=== PATIENT | female | born 1990 | race Caucasian/White ===

== ENCOUNTER 2017-02-06 17:20 | Inpatient (IN) | payer MEDICAID, OTHER ==
[2017-02-06 19:16] VITALS: BMI 22.8
[2017-02-06] MEDS ORDERED: MAGNESIUM HYDROXIDE 2,400 MG/10 ML CUP PO PRN (19:29)
[2017-02-06] MEDS ORDERED: ZIPRASIDONE 20 MG VIAL IM PRN (19:29)
[2017-02-06] MEDS: NICOTINE 14MG/24HR PATCH TRANSDERM SCH (20:30)
[2017-02-07] MEDS: NICOTINE 14MG/24HR PATCH TRANSDERM SCH (09:14)
[2017-02-07] MEDS: LORazepam 1 MG TAB PO PRN (09:14)
[2017-02-07] MEDS ORDERED: QUEtiapine 50 MG TAB PO PRN (09:39)
[2017-02-07] MEDS: FLUoxetine HCL 20 MG CAP PO SCH (11:07)
[2017-02-07] MEDS ORDERED: LOPERAMIDE 2 MG CAP PO PRN (14:16)
[2017-02-07] MEDS: MAG HYDROX/AL HYDROX/SIMETH 30 ML CUP PO PRN (14:41)
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
--- NOTE | 2017-02-07 18:57 | CONS ---
CHIEF COMPLAINT: Depression. HISTORY OF PRESENT ILLNESS: This is another admission for this 26-year-old white female who has a long-standing history of problems, including difficulty with depression. She is admitted for management of a severe depressive episode. She is bipolar. We have not seen her since July of 2016; at that time she was on BuSpar and Celexa. Apparently she had quite a bit of difficulty of late and was brought in for treatment. REVIEW OF SYSTEMS: She is currently not giving much history and is curled up on the floor between her bed and the wall. She denies any headaches, chest pain, shortness of breath, abdominal pain, etc. Past medical history, family history, and personal and social histories are all otherwise unremarkable and noncontributory. She does smoke and drinks alcohol. PHYSICAL EXAMINATION: Blood pressure is 114/66, pulse 70, respiration 16. She is afebrile. In general she appeared to be slender and in no acute distress. She was huddled up on her blanket between her bed and the wall. Head, ears, eyes, nose, mouth and throat were normal. The chest is clear. The cardiac exam is normal. The abdomen is soft, nontender. Extremities are normal. IMPRESSION: 1. Major depression. 2. History of bipolar depression. 3. Asthma. RECOMMENDATIONS: None at this time.
[2017-02-07] MEDS ORDERED: QUEtiapine 100 MG TAB PO SCH (21:00)
[2017-02-08] MEDS: NICOTINE 14MG/24HR PATCH TRANSDERM SCH (10:08)
[2017-02-08] MEDS: FLUoxetine HCL 20 MG CAP PO SCH (10:09)
[2017-02-08 12:05] LABS: Appearance,Urine Cloudy (Clear); Bilirubin,Urine Negative (Negative); Glucose,Urine (UA) Negative (Negative); Ketones,Urine Negative (Negative); Leukocyte Esterase,Urine Negative (Negative); Mucus,Urine Moderate /hpf; Nitrite,Urine Negative (Negative); PH, Urine 6.5 (5.0-8.0); Particle Count 11237; Protein,Urine 1+ (Negative); RBC,Urine 1 /hpf (0-5); Specific Gravity,Urine 1.018 (1.001-1.035); Squamous Epithelial Cell,Urine 5 /hpf (0-4); UA Billing (MACRO vs. MICRO) MICRO; Urobilinogen,Urine <2.0 mg/dL (<2.0); WBC,Urine 3 /hpf (0-5)
[2017-02-08] MEDS: SERTRALINE 100 MG TAB PO SCH (12:09)
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
[2017-02-08] MEDS: QUEtiapine 200 MG TAB PO SCH (20:00)
[2017-02-08] MEDS: ONDANSETRON 4 MG TAB PO PRN (20:00)
[2017-02-09] MEDS: ACETAMINOPHEN TAB 325 MG TAB PO PRN (06:35)
[2017-02-09] MEDS: SERTRALINE 100 MG TAB PO SCH (09:33)
[2017-02-09] MEDS: ONDANSETRON 4 MG TAB PO PRN ×2 (09:33→18:38)
[2017-02-09] MEDS: NICOTINE 14MG/24HR PATCH TRANSDERM SCH (09:33)
--- NOTE | 2017-02-09 13:51 | P.PN ---
Progress Note - Text SUBJECTIVE: I reviewed the medical record, interviewed Ms. Connor and discussed her treatment and treatment plan during team meeting. She stated she feels less depressed, hopeless and helpless. She denied having current suicidal thoughts. She spoke with a friend, Leoncio, and may stay with him until she can enter the [facility] house. Leoncio does not have a problem with drugs or alcohol. On a 10 point Likert scale she rated her depression as a "5" She requested to be discharged "by Tuesday" because she wants to attend the for her children's father's father. OBJECTIVE: She presented as a casually groomed 26-year-old female who was pleasant on approach. She maintained intermittent eye contact and appeared to attend to interview. She had a blunted but bright facial expression. She was not restless during the interview. Speech was spontaneous with normal rate, rhythm and volume. Her affect was blunted but bright; she did not cry during interview. She denied suicidal ideation and wishes. She denied feeling hopelessness, helplessness and worthlessness. She denied express ideas reference or paranoid ideation. Her thinking was concrete but her associations were coherent and logical. She denied hallucinations and did not appear to be responding to internal stimuli. ASSESSMENT: She appears moderately mentally illness and much improved from admission. PLAN: Continue inpatient psychiatric hospitalization. Continue Zoloft 100 mg daily, Seroquel 200 mg daily and Seroquel 50 mg by mouth twice a day when necessary for anxiety. Continue lorazepam 1 mg by mouth every 8 hours when necessary for agitation or extreme anxiety and Geodon 20 mg IM by mouth twice a day for agitation or acute psychosis. Encourage participation in therapeutic groups and activities. Evaluate clinical status response to treatment on a daily basis.
[2017-02-09] MEDS: MAG HYDROX/AL HYDROX/SIMETH 30 ML CUP PO PRN (16:33)
[2017-02-09] MEDS: LORazepam 1 MG TAB PO PRN (18:38)
[2017-02-09] MEDS: QUEtiapine 200 MG TAB PO SCH (20:42)
[2017-02-10] MEDS: ACETAMINOPHEN TAB 325 MG TAB PO PRN (02:43)
[2017-02-10] MEDS: NICOTINE 14MG/24HR PATCH TRANSDERM SCH (08:13)
[2017-02-10] MEDS: LORazepam 1 MG TAB PO PRN ×2 (08:16→18:09)
[2017-02-10] MEDS: SERTRALINE 100 MG TAB PO SCH (08:16)
--- NOTE | 2017-02-10 11:51 | P.PN ---
Progress Note - Text SUBJECTIVE: I reviewed the medical record, interviewed Ms. Connor and discussed her treatment and treatment plan during team meeting. She feels hopeful. Her geriatric social worker assist her in contacting the [facility]. She has an interview this afternoon with one of their recovery coaches. She is excited about the prospect of going to [facility]. OBJECTIVE: She presented as a casually groomed 26-year-old female who was pleasant on approach. She maintained intermittent eye contact and appeared to attend to interview. She had a blunted but bright facial expression. She was not restless during the interview. Speech was spontaneous with normal rate, rhythm and volume. Her affect was blunted but bright; she did not cry during interview. She denied suicidal ideation and wishes. She denied feeling hopelessness, helplessness and worthlessness. She did not express ideas reference or paranoid ideation. Her thinking was concrete but her associations were coherent and logical. She denied hallucinations and did not appear to be responding to internal stimuli. ASSESSMENT: She appears minimally mentally illness and much improved from admission. PLAN: She if she accepted discharge her to the [facility] otherwise discharge to her friend's home. Continue Zoloft 100 mg daily, Seroquel 200 mg daily and Seroquel 50 mg by mouth twice a day when necessary for anxiety. Continue lorazepam 1 mg by mouth every 8 hours when necessary for agitation or extreme anxiety and Geodon 20 mg IM by mouth twice a day for agitation or acute psychosis. Encourage participation in therapeutic groups and activities. Evaluate clinical status response to treatment on a daily basis.
[2017-02-10] MEDS: QUEtiapine 200 MG TAB PO SCH (20:12)
[2017-02-11 06:34] VITALS: BP 118/81; PULSE 63; RESP 16; TEMP 98.6
[2017-02-11] MEDS: NICOTINE 14MG/24HR PATCH TRANSDERM SCH (08:36)
[2017-02-11] MEDS: SERTRALINE 100 MG TAB PO SCH (08:36)
[2017-02-11] MEDS: LORazepam 1 MG TAB PO PRN (10:43)
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
== END 2017-02-11 14:22 | disposition home or self-care (01) | DRG 881 ==
LOC: 3MHU 18:17
PROVIDERS: ADMIT Psychiatry & Neurology Psychiatry; ATTEND Psychiatry & Neurology Psychiatry
DX: F32.9 Major depressive disorder, single episode, unspecified (principal); F11.20 Opioid dependence, uncomplicated; R45.851 Suicidal ideations; F14.20 Cocaine dependence, uncomplicated; B19.20 Unspecified viral hepatitis C without hepatic coma; F41.1 Generalized anxiety disorder; G56.00 Carpal tunnel syndrome, unspecified upper limb; G47.00 Insomnia, unspecified; J45.909 Unspecified asthma, uncomplicated; M41.9 Scoliosis, unspecified; Z59.0 Homelessness; Z63.4 Disappearance and death of family member; Z79.899 Other long term (current) drug therapy; Z91.013 Allergy to seafood
CPT/HCPCS: 80306; 81001

== ENCOUNTER 2017-04-01 17:40 | Emergency (ER) | payer OTHER ==
[2017-04-01 18:00] VITALS: BP 113/68; PULSE 75; RESP 18; TEMP 99.3
--- NOTE | 2017-04-01 18:09 | ED ---
Fall HPI - General Chief Complaint: Fall Stated Complaint: Fall Time Seen by Provider: 04/01/17 18:02 Source: patient, RN notes reviewed Mode of arrival: ambulatory - History of Present Illness Initial Comments: 26-year-old female presents emergency room chief complaint of right-sided rib pain. Patient states that she fell on her steps on Tuesday. Patient states that she's had this pain in the right-sided ribs. Worse if she takes a deep breath. Tender to touch. Patient states just not getting any better so she was. Patient states that she hasn't had any other symptoms with this. Patient denies any cough cold runny nose any fever chills. Patient states she did not hit her head she did not lose consciousness with the incident. Patient states she was concerned due to her continued symptoms that evaluated.Patient denies any recent fever, chills, shortness of breath, chest pain, back pain, abdominal pain, nausea vomiting, numbness or tingling, dysuria or hematuria, constipation or diarrhea, headaches or visual changes, or any other current symptoms. - Related Data Previous Rx's Medication Instructions Recorded Nicotine 14Mg/24Hr Patch [Habitrol] 1 patch TRANSDERM DAILY #7 patch 02/11/17 QUEtiapine [SEROquel] 50 mg PO BID PRN 30 Days 02/11/17 QUEtiapine [SEROquel] 200 mg PO HS 30 Days 02/11/17 Sertraline [Zoloft] 100 mg PO DAILY 30 Days 02/11/17 Ibuprofen [Motrin] 600 mg PO Q6HR PRN #20 tab 04/01/17 Allergies Allergy/AdvReac Type Severity Reaction Status Date / Time shellfish derived [Shellfish] AdvReac Nausea & Verified 02/06/17 19:18 Vomiting Review of Systems ROS Statement: Those systems with pertinent positive or pertinent negative responses have been documented in the HPI. ROS Other: All systems not noted in ROS Statement are negative. Past Medical History Past Medical History: Asthma Additional Past Medical History / Comment(s): childhood asthma History of Any Multi-Drug Resistant Organisms: None Reported Past Surgical History: Section, Tubal Ligation Additional Past Surgical History / Comment(s): x2 Past Anesthesia/Blood Transfusion Reactions: Previous Problems w/ Anesthesia Additional Past Anesthesia/Blood Transfusion Reaction / Comment(s): epidural did not work, put under for and quit breathing. Past Psychological History: No Psychological Hx Reported Smoking Status: Current every day smoker Past Alcohol Use History: None Reported Past Drug Use History: Marijuana Additional Drug Use History / Comment(s): abuse of heroin in the past, she has not used in the past month. heroin use yesterday 06/27/16 - Past Family History Father Family Medical History: Hypertension, Pneumonia Mother Additional Family Medical History / Comment(s): ETOH, mental issues. General Exam Limitations: no limitations General appearance: alert, in no apparent distress Head exam: Present: atraumatic, normocephalic, normal inspection ENT exam: Present: normal exam, mucous membranes moist Neck exam: Present: normal inspection. Absent: tenderness, meningismus, lymphadenopathy Respiratory exam: Present: normal lung sounds bilaterally, chest wall tenderness (Over the right lateral rib cage). Absent: respiratory distress, wheezes, rales, rhonchi, stridor Cardiovascular Exam: Present: regular rate, normal rhythm, normal heart sounds. Absent: systolic murmur, diastolic murmur, rubs, gallop, clicks GI/Abdominal exam: Present: soft, normal bowel sounds. Absent: distended, tenderness, guarding, rebound, rigid Neurological exam: Present: alert, oriented X3 Psychiatric exam: Present: normal affect, normal mood Skin exam: Present: warm, dry, intact, normal color. Absent: rash Course Vital Signs 04/01/17 17:58 Temperature 99.3 F Pulse Rate 75 Respiratory 18 Rate Blood Pressure 113/68 O2 Sat by Pulse 99 Oximetry Medical Decision Making - Medical Decision Making 18-year-old female presents with chief complaint of fall with right-sided rib pain. This time patient went rib and a chest x-ray. At this time patient does appear to have a 10th rib fracture. We will start her on pain medication. We discussed the importance of deep breath she discussed care of follow-up and return parameters. Patient stated she understood all questions have been answered. She'll be discharged. - Radiology Data Radiology results: report reviewed, image reviewed Disposition Clinical Impression: Fall, Closed rib fracture Disposition: HOME SELF-CARE Condition: Stable Instructions: Rib Fracture (ED) Additional Instructions: Please use medication as discussed. Please follow up with family doctor if symptoms have not improved over the next two days. Please return to the emergency room if your symptoms increase or worsen or for any other concerns. Prescriptions: Ibuprofen [Motrin] 600 mg PO Q6HR PRN #20 tab PRN Reason: Pain Referrals: Bhavin Guzman MD [Primary Care Provider] - 1-2 days Time of Disposition: 18:49
--- NOTE | 2017-04-01 18:31 | XR ---
PA chest x-ray with right RIBS HISTORY: Fall 2 days ago, right rib pain Frontal view of the chest and 4 views of the right ribs No comparisons There is posterior right 10th nondisplaced rib fracture. No pneumothorax or pleural effusion. Cardiac mediastinal silhouette, pulmonary vascularity and kristine within normal limits. IMPRESSION: Nondisplaced posterior 10th rib fracture on the right.
== END 2017-04-01 18:45 | disposition home or self-care (01) ==
LOC: EC 17:40
DX: S22.31XA Fracture of one rib, right side, initial encounter for closed fracture (principal); F17.200 Nicotine dependence, unspecified, uncomplicated; Z91.013 Allergy to seafood; W10.9XXA Fall (on) (from) unspecified stairs and steps, initial encounter
CPT/HCPCS: 99284

== ENCOUNTER 2017-09-05 14:53 | Inpatient (IN) | payer MEDICAID, OTHER ==
[2017-09-05] MEDS ORDERED: LORazepam 1 MG TAB PO STA (15:29)
[2017-09-05] MEDS ORDERED: DIPH,PERTUS(ACELL)TETVAC-LF 0.5 ML VIAL IM ONE (15:32)
--- NOTE | 2017-09-05 15:35 | ED ---
Psych HPI - General Chief Complaint: Psychiatric Symptoms Stated Complaint: Mental Health Time Seen by Provider: 09/05/17 15:07 Source: EMS Mode of arrival: EMS - History of Present Illness Initial Comments: 27 years old female brought in by police, she has been drinking today she stated she had to pull cancer. And 5 shots she took 4-5 pills of Wellbutrin today around 10 AM she also inflicted some superficial wounds on the left forearm, he has suicidal. Denies any headaches no neck pain no chest pain or shortness of breath no abdominal pain no frequency urgency dysuria - Related Data Previous Rx's Medication Instructions Recorded Amoxicillin 250 mg PO Q8HR #3 cap 09/12/17 Benzocaine 20 % Gel [Orajel] 20 gm MM QID PRN tube 09/12/17 Ibuprofen [Motrin] 400 mg PO TID PRN tab 09/12/17 Naltrexone HCl [Revia] 50 mg PO DAILY #30 tab 09/12/17 Venlafaxine HCl ER [Effexor XR] 75 mg PO DAILY #30 cap 09/12/17 lamoTRIgine [LaMICtal] 25 mg PO HS #30 tab 09/12/17 Allergies Allergy/AdvReac Type Severity Reaction Status Date / Time shellfish derived [Shellfish] AdvReac Nausea & Verified 09/05/17 15:19 Vomiting Review of Systems ROS Statement: Those systems with pertinent positive or pertinent negative responses have been documented in the HPI. ROS Other: All systems not noted in ROS Statement are negative. Past Medical History Past Medical History: Asthma Additional Past Medical History / Comment(s): childhood asthma History of Any Multi-Drug Resistant Organisms: None Reported Past Surgical History: Section, Tubal Ligation Additional Past Surgical History / Comment(s): x2 Past Anesthesia/Blood Transfusion Reactions: Previous Problems w/ Anesthesia Additional Past Anesthesia/Blood Transfusion Reaction / Comment(s): epidural did not work, put under for and quit breathing. Past Psychological History: No Psychological Hx Reported Smoking Status: Current every day smoker Past Alcohol Use History: None Reported Past Drug Use History: Marijuana - Past Family History Father Family Medical History: Hypertension, Pneumonia Mother Additional Family Medical History / Comment(s): ETOH, mental issues. General Exam - General Exam Comments Initial Comments: General: The patient is awake and alert, in no distress, and does not appear acutely ill. Prior to my exam she was quite violent she needed for point restraints by the time of my exam she was quite relaxed and cooperative Skin: Skin is warm and dry noticed 3 lacerations on the left forearm each one of those lacerations worse about 5-6 cm long Eye: Pupils are equal, round and reactive to light, extra-ocular movements are intact; there is normal conjunctiva bilaterally. Ears, nose, mouth and throat: There are moist mucous membranes and no oral lesions. Neck: The neck is supple, there is no tenderness or JVD. Cardiovascular: There is a regular rate and rhythm. No murmur, rub or gallop is appreciated. Respiratory: To auscultation bilateral, no wheezing no rhonchi no distress respiratory bright noticed Gastrointestinal: Soft, non-distended, non-tender abdomen without masses or organomegaly noted. There is no rebound or guarding present. Bowel sounds are unremarkable. Back: There is no tenderness to palpation in the midline. There is no obvious deformity. Musculoskeletal: Normal ROM, no tenderness, There is no pedal edema. There is no calf tenderness or swelling. No cords were appreciated. Neurological: CN II-XII intact, Cranial nerves III through XII are intact. There are no obvious motor or sensory deficits. Coordination appears grossly intact. Speech is normal. Psychiatric: Cooperative, appropriate mood & affect, normal judgment. Limitations: no limitations Course Vital Signs 09/05/17 15:02 Temperature 98.1 F Pulse Rate 110 H Respiratory 18 Rate Blood Pressure 130/80 O2 Sat by Pulse 97 Oximetry Procedures - Laceration Laceration #1 Consent Obtained: verbal consent Time Out Performed: Yes Indication: laceration Site: upper extremity Size (cm): 5 Description: linear Depth: simple, single layer Sedation/Analgesia: none Anesthetic Used: lidocaine 1% Anesthesia Technique: local infiltration Pre-repair: irrigated extensively Type of Sutures: nylon Size of Sutures: 5-0 Number of Sutures: 5 Laceration #2 Time Out Performed: Yes Indication: laceration Site: upper extremity Description: linear Depth: simple, single layer Sedation/Analgesia: none Anesthetic Used: lidocaine 1% Anesthesia Technique: local infiltration Amount (mls): 3 Pre-repair: irrigated extensively Type of Sutures: nylon Size of Sutures: 5-0 Number of Sutures: 4 Technique: simple, interrupted (tolerated the procedure well there were no complication) - Restraint - Face to Face Restraint Occurrence 1 Patient's Immediate Situation: Endangers self safety, Endangers others' safety, Endangers staff safety Patient's Reaction to the Intervention: Uncooperative, Hostile, Belligerent, Aggressive, Combative, Restless Patient's Medical & Behavioral Condition: Confused, Agitated, Paranoid Need to Continue or Terminate Restraint or Seclusion: Continue Medical Decision Making - Lab Data Result diagrams: 09/05/17 15:50 09/05/17 15:50 Lab Results 09/05/17 09/05/17 09/05/17 Range/Units 15:50 15:50 15:50 WBC 8.4 (3.8-10.6) k/uL RBC 3.94 (3.80-5.40) m/uL Hgb 11.0 L (11.4-16.0) gm/dL Hct 35.2 (34.0-46.0) % MCV 89.3 (80.0-100.0) fL MCH 28.0 (25.0-35.0) pg MCHC 31.4 (31.0-37.0) g/dL RDW 15.2 (11.5-15.5) % Plt Count 276 (150-450) k/uL Neutrophils % 84 % Lymphocytes % 10 % Monocytes % 4 % Eosinophils % 1 % Basophils % 0 % Neutrophils # 7.0 (1.3-7.7) k/uL Lymphocytes # 0.9 L (1.0-4.8) k/uL Monocytes # 0.3 (0-1.0) k/uL Eosinophils # 0.1 (0-0.7) k/uL Basophils # 0.0 (0-0.2) k/uL Hypochromasia Slight Sodium 146 H (137-145) mmol/L Potassium 4.0 (3.5-5.1) mmol/L Chloride 110 H (98-107) mmol/L Carbon Dioxide 22 (22-30) mmol/L Anion Gap 14 mmol/L BUN 8 (7-17) mg/dL Creatinine 0.73 (0.52-1.04) mg/dL Est GFR (MDRD) Af Amer >60 (>60 ml/min/1.73 sqM) Est GFR (MDRD) Non-Af >60 (>60 ml/min/1.73 sqM) Glucose 93 (74-99) mg/dL Estimated Ave Glu mg/dL mg/dL Hemoglobin A1c (4.2-6.1) % Calcium 8.9 (8.4-10.2) mg/dL Triglycerides (<150) mg/dL Cholesterol (<200) mg/dL LDL Cholesterol, Calc (0-99) mg/dL HDL Cholesterol (40-60) mg/dL TSH (0.465-4.680) mIU/L Salicylates <1.0 mg/dL Urine Opiates Screen Not Detected (NotDetected) Ur Oxycodone Screen Not Detected (NotDetected) Urine Methadone Screen Not Detected (NotDetected) Ur Propoxyphene Screen Not Detected (NotDetected) Acetaminophen <10.0 ug/mL Ur Barbiturates Screen Not Detected (NotDetected) U Tricyclic Antidepress Not Detected (NotDetected) Ur Phencyclidine Scrn Not Detected (NotDetected) Ur Amphetamines Screen Not Detected (NotDetected) U Methamphetamines Scrn Not Detected (NotDetected) U Benzodiazepines Scrn Not Detected (NotDetected) Urine Cocaine Screen Detected H (NotDetected) U Marijuana (THC) Screen Detected H (NotDetected) Serum Alcohol 95 mg/dL 09/05/17 09/05/17 09/05/17 Range/Units 15:50 15:50 15:50 WBC (3.8-10.6) k/uL RBC (3.80-5.40) m/uL Hgb (11.4-16.0) gm/dL Hct (34.0-46.0) % MCV (80.0-100.0) fL MCH (25.0-35.0) pg MCHC (31.0-37.0) g/dL RDW (11.5-15.5) % Plt Count (150-450) k/uL Neutrophils % % Lymphocytes % % Monocytes % % Eosinophils % % Basophils % % Neutrophils # (1.3-7.7) k/uL Lymphocytes # (1.0-4.8) k/uL Monocytes # (0-1.0) k/uL Eosinophils # (0-0.7) k/uL Basophils # (0-0.2) k/uL Hypochromasia Sodium (137-145) mmol/L Potassium (3.5-5.1) mmol/L Chloride (98-107) mmol/L Carbon Dioxide (22-30) mmol/L Anion Gap mmol/L BUN (7-17) mg/dL Creatinine (0.52-1.04) mg/dL Est GFR (MDRD) Af Amer (>60 ml/min/1.73 sqM) Est GFR (MDRD) Non-Af (>60 ml/min/1.73 sqM) Glucose (74-99) mg/dL Estimated Ave Glu mg/dL 103 mg/dL Hemoglobin A1c 5.2 (4.2-6.1) % Calcium (8.4-10.2) mg/dL Triglycerides 102 (<150) mg/dL Cholesterol 125 (<200) mg/dL LDL Cholesterol, Calc 46 (0-99) mg/dL HDL Cholesterol 59 (40-60) mg/dL TSH 0.168 L (0.465-4.680) mIU/L Salicylates mg/dL Urine Opiates Screen (NotDetected) Ur Oxycodone Screen (NotDetected) Urine Methadone Screen (NotDetected) Ur Propoxyphene Screen (NotDetected) Acetaminophen ug/mL Ur Barbiturates Screen (NotDetected) U Tricyclic Antidepress (NotDetected) Ur Phencyclidine Scrn (NotDetected) Ur Amphetamines Screen (NotDetected) U Methamphetamines Scrn (NotDetected) U Benzodiazepines Scrn (NotDetected) Urine Cocaine Screen (NotDetected) U Marijuana (THC) Screen (NotDetected) Serum Alcohol mg/dL Disposition Clinical Impression: Drug overdose, Suicidal ideation, Forearm laceration Disposition: HOME SELF-CARE Condition: Good
[2017-09-05 16:14] LABS: Basophils % (A) 0 %; CH 28.8; CHCM 32.4; Eosinophils # (A) 0.1 k/uL (0-0.7); Eosinophils % (A) 1 %; HCT 35.2 % (34.0-46.0); HDW 3.18; Hypochromasia Slight; Luc # (Auto) 0.08; Luc % (Auto) 1; Lymphocytes # (A) 0.9 k/uL (1.0-4.8); Lymphocytes % (A) 10 %; MCHC 31.4 g/dL (31.0-37.0); MCV 89.3 fL (80.0-100.0); Mean Platelet Volume 7.7; Monocytes # (A) 0.3 k/uL (0-1.0); Monocytes % (A) 4 %; Neutrophils % (A) 84 %; RBC 3.94 m/uL (3.80-5.40); RDW 15.2 % (11.5-15.5); WBC 8.4 k/uL (3.8-10.6); WBC (Perox) 8.97
[2017-09-05 16:28] LABS: Acetaminophen <10.0 ug/mL; Anion Gap 14 mmol/L; Blood Urea Nitrogen 8 mg/dL (7-17); Calcium 8.9 mg/dL (8.4-10.2); Carbon Dioxide 22 mmol/L (22-30); Chloride 110 mmol/L (98-107); Glucose 93 mg/dL (74-99); Non-African American GFR(MDRD) >60 (>60 ml/min/1.73 sqM); Salicylate <1.0 mg/dL; Sodium 146 mmol/L (137-145)
[2017-09-05 16:34] LABS: Alcohol 95 mg/dL
[2017-09-05] MEDS ORDERED: MAG HYDROX/AL HYDROX/SIMETH 30 ML CUP PO PRN (21:23)
[2017-09-05] MEDS ORDERED: MAGNESIUM HYDROXIDE 2,400 MG/10 ML CUP PO PRN (21:23)
[2017-09-05] MEDS ORDERED: LORazepam 2 MG/ML INJ IM PRN (21:25)
[2017-09-05] MEDS: NICOTINE 21MG/24HR PATCH TRANSDERM SCH (22:34)
[2017-09-06 02:57] LABS: Cholesterol 125 mg/dL (<200); HDL Cholesterol 59 mg/dL (40-60)
[2017-09-06 08:07] LABS: Hemoglobin A1C 5.2 % (4.2-6.1)
[2017-09-06] MEDS: NICOTINE 21MG/24HR PATCH TRANSDERM SCH (09:52)
[2017-09-06] MEDS: ACETAMINOPHEN TAB 325 MG TAB PO PRN ×2 (10:30→17:31)
[2017-09-06] MEDS: LORazepam 1 MG TAB PO PRN ×4 (10:32→20:36)
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
[2017-09-06] MEDS: NEOMYCIN-BACITRACIN-POLY OINT 14 GM TUBE TOPICAL SCH (18:43)
[2017-09-06] MEDS: AMOXICILLIN 250 MG CAP PO SCH ×2 (18:43→23:21)
--- NOTE | 2017-09-06 20:13 | CONS ---
CONSULTATION CHIEF COMPLAINT: Major depression. HISTORY OF PRESENT ILLNESS: This is another admission for this 27-year-old white female who became severely depressed and started cutting her left forearm. She came to the emergency room, where sutures were taken and she was admitted. She has a long-standing history of major depression and alcohol abuse and had been drinking heavily. She also has a history of asthma. She has not been in the office for over a year. REVIEW OF SYSTEMS: She denies any focal neurologic deficits, chest pain, hemoptysis, hypertension, heart disease, abdominal pain, vomiting, diarrhea, melena, hematochezia, jaundice, renal disease, diabetes, etc. PAST MEDICAL HISTORY, FAMILY HISTORY, PERSONAL AND SOCIAL HISTORY: Reveal that she is currently not taking any medication and is not allergic to any. She drinks heavily, but denies the use of drugs. She does smoke about a pack of cigarettes a day. The only surgery she has had is a tubal ligation. PHYSICAL EXAMINATION: Blood pressure is 134/90 with a pulse of 90, respirations of 35 and she is afebrile. GENERAL: She appeared to be depressed. SKIN: Color is normal. Skin is warm and dry. She had excoriations on the left forearm which were dressed. HEAD EARS, EYES, NOSE, MOUTH AND THROAT: Normal. CHEST: Clear. CARDIAC: Normal. No murmurs or extra sounds. ABDOMEN: Soft, nontender, without any visceromegaly or masses. Bowel sounds present. EXTREMITIES: Normal. NEUROLOGICAL: She is intact, but very depressed. IMPRESSION: 1. Major depression. 2. Lacerations of left forearm. 3. Asthma. RECOMMENDATIONS: None. MMODL / IJN: [id number] /
[2017-09-07] MEDS: NICOTINE 21MG/24HR PATCH TRANSDERM SCH (09:28)
[2017-09-07] MEDS: AMOXICILLIN 250 MG CAP PO SCH ×2 (09:28→16:48)
[2017-09-07] MEDS: NEOMYCIN-BACITRACIN-POLY OINT 14 GM TUBE TOPICAL SCH (09:28)
[2017-09-07] MEDS: LORazepam 1 MG TAB PO PRN ×3 (09:31→16:48)
[2017-09-07] MEDS: VENLAFAXINE HCL ER 37.5 MG CAP PO SCH (10:12)
[2017-09-07] MEDS: NALTREXONE HCL 50 MG TAB PO SCH (11:01)
--- NOTE | 2017-09-07 11:18 | P.PN ---
Progress Note - Text Interval history: The patient is found in her room she follows me to an interview room. She reports her mood is depressed she feels anxious and overwhelmed. She has not been participating in groups today. She was able to eat breakfast. We discussed her Effexor XR her questions were answered. We discussed reinitiating naltrexone and she is agreeable. Staff report she has been eyes looked have. The patient states that she has not showered since she' s been here. Mental status exam: The patient is alert she seated in her chair calmly eye contact is poor. Her wounds are visible on her left anterior forearm. There is some surrounding erythema. Sutures are intact. She has a disheveled appearance with impaired hygiene. She has a dysphoric affect and is tearful throughout the session. She reports feeling sad and depressed hopeless. She reports no homicidal ideation. There is no evidence of psychosis hypomania or sherri. She remains oriented to person place and date. Plan: The patient will continue on the Effexor XR. We will add naltrexone to reduce cravings for alcohol and opiate use. She is instructed to attend groups and to shower today. We will continue to monitor her for safety. Vital signs reviewed.
[2017-09-07] MEDS: ACETAMINOPHEN TAB 325 MG TAB PO PRN (16:48)
[2017-09-08] MEDS: AMOXICILLIN 250 MG CAP PO SCH ×4 (00:09→23:46)
[2017-09-08] MEDS: NICOTINE 21MG/24HR PATCH TRANSDERM SCH (08:48)
[2017-09-08] MEDS: NALTREXONE HCL 50 MG TAB PO SCH (08:48)
[2017-09-08] MEDS: VENLAFAXINE HCL ER 37.5 MG CAP PO SCH (08:48)
[2017-09-08] MEDS: ACETAMINOPHEN TAB 325 MG TAB PO PRN ×2 (08:51→16:53)
[2017-09-08] MEDS: LORazepam 1 MG TAB PO PRN ×4 (08:51→20:42)
[2017-09-08] MEDS: NEOMYCIN-BACITRACIN-POLY OINT 14 GM TUBE TOPICAL SCH (09:33)
--- NOTE | 2017-09-08 11:49 | P.PN ---
Progress Note - Text Interval history: The patient is found in her room she follows me to an interview room. She reports that she has not been attending very many groups. She finds her mood continues to be depressed. She is concerned about how she will take care of herself upon discharge. She does not wish to attend inpatient chemical dependency treatment. She has options of staying with a neighbor her ex-boyfriend or residing in a retirement environment. She verbalizes that she would like to work again but just doesn't know how she will accomplish that with her felony record. We discussed her current medication she has no questions or concerns regarding education. Mental status exam: The patient is a female appearing her stated age she seated calmly in the chair eye contact is poor she is tearful throughout the session. She endorses a depressed mood she endorses hopelessness thinking and uncertainty as to what she should do. She endorses no homicidal ideation. There is no report or observation of hallucinations or delusional thought. Insight and judgment is limited. She demonstrates no verbal or physical aggressiveness. She remains oriented to person place and date. Plan: The patient's Effexor XR will be titrated to 75 mg daily. She is instructed to attend groups. We continue to monitor for safety. We discussed any other discharge options with social work regarding retirement placement or three-quarter home placement. She is not appropriate for discharge at this time.
[2017-09-09] MEDS: NICOTINE 21MG/24HR PATCH TRANSDERM SCH (08:26)
[2017-09-09] MEDS: NALTREXONE HCL 50 MG TAB PO SCH (08:27)
[2017-09-09] MEDS: AMOXICILLIN 250 MG CAP PO SCH ×3 (08:27→23:53)
[2017-09-09] MEDS: VENLAFAXINE HCL ER 37.5 MG CAP PO SCH (08:27)
[2017-09-09] MEDS: LORazepam 1 MG TAB PO PRN ×3 (08:28→20:53)
[2017-09-09] MEDS: NEOMYCIN-BACITRACIN-POLY OINT 14 GM TUBE TOPICAL SCH (08:28)
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
--- NOTE | 2017-09-09 12:24 | XR ---
EXAMINATION TYPE: XR nasal bone DATE OF EXAM: 09/09/2017 COMPARISON: 12/03/2010 HISTORY: Nasal swelling TECHNIQUE: 3 views of the nasal bone were obtained. FINDINGS: There is leftward nasal septal deviation, similar to the prior exam of 12/03/2010. The latera l view shows no definitive displaced fracture. Paranasal sinuses appear well aerated. Orbits appear i ntact. No focal soft tissue swelling is seen radiographically. IMPRESSION: Unchanged leftward nasal septal deviation in comparison to exam of 12/03/2010. No evidence of acute fracture or dislocation of the nasal bone.
[2017-09-10] MEDS: NICOTINE 21MG/24HR PATCH TRANSDERM SCH (08:23)
[2017-09-10] MEDS: VENLAFAXINE HCL ER 75 MG CAP PO SCH (08:24)
[2017-09-10] MEDS: AMOXICILLIN 250 MG CAP PO SCH ×2 (08:24→15:51)
[2017-09-10] MEDS: NALTREXONE HCL 50 MG TAB PO SCH (08:24)
[2017-09-10] MEDS: NEOMYCIN-BACITRACIN-POLY OINT 14 GM TUBE TOPICAL SCH (08:25)
[2017-09-10] MEDS: LORazepam 1 MG TAB PO PRN ×2 (08:25→18:26)
--- NOTE | 2017-09-10 15:04 | P.PN ---
Progress Note - Text Progress Note Date: 09/10/17 Patient seen in [facility] today for Dr. Stoner. She reports that she did not sleep well last night. She complains of racing thoughts at night. She describes previous diagnosis of bipolar disorder. She does feel like her mood could be better. She has been on Seroquel in the past, Zyprexa in the past. She has been started on Effexor XR which she seems to be tolerating okay. She does describe a lot of anxiety around people. She states that with trazodone in the past she had racing thoughts. Mental status exam: She is alert and cooperative with the interview. Her speech is fluent, not rapid or pressured. Her affect overall is restricted. She denies any thoughts of harm to self or others. No evidence of psychosis or current agitation. She does describe racing thoughts. She does describe that her mood could be better. She reports that her mood has shown some improvement. Plan: We will initiate Lamictal 25 mg at bedtime to help with augmentation for mood and help with complain of racing thoughts. We'll maintain Effexor XR as current. We'll continue to cover this patient for Dr. Dominguez through the weekend. We'll monitor her mood and monitor her sleep.
[2017-09-10] MEDS: lamoTRIgine 25 MG TAB PO SCH (21:46)
[2017-09-11] MEDS: AMOXICILLIN 250 MG CAP PO SCH ×4 (01:33→22:59)
[2017-09-11] MEDS: LORazepam 1 MG TAB PO PRN ×2 (02:37→21:01)
[2017-09-11] MEDS: ACETAMINOPHEN TAB 325 MG TAB PO PRN ×2 (02:38→08:42)
[2017-09-11 04:46] VITALS: RESP 16
[2017-09-11] MEDS ORDERED: BENZOCAINE 20 % GEL 15 GM TUBE MM PRN (05:24)
[2017-09-11] MEDS: IBUPROFEN 400 MG TAB PO PRN ×2 (05:47→16:40)
[2017-09-11] MEDS: NICOTINE 21MG/24HR PATCH TRANSDERM SCH (08:38)
[2017-09-11] MEDS: VENLAFAXINE HCL ER 75 MG CAP PO SCH (08:38)
[2017-09-11] MEDS: NALTREXONE HCL 50 MG TAB PO SCH (08:39)
[2017-09-11] MEDS: NEOMYCIN-BACITRACIN-POLY OINT 14 GM TUBE TOPICAL SCH (08:39)
--- NOTE | 2017-09-11 17:38 | P.PN ---
Progress Note - Text Progress Note Date: 09/11/17 Interval history: Patient reports that she didn't sleep that well last night related to some tooth pain. The Motrin as needed is helping it sounds. She does describe her mood feeling a little better today and seems. She did not have any adverse side effects with the Lamictal. She does feel like her anxiety she seems to feel more in the second part of the day. Mental status exam: She is alert and cooperative with the interview. Speech is fluent, not rapid or pressured. Thought processes organized. Her mood seems to be a little better today. She denies any thoughts of harm to self or others. No evidence of psychosis or agitation. Plan: Patient will be maintained on current psychotropic medication regimen. We 'll continue to monitor for any medication side effects, monitor her mood and for ongoing response to medications. Dr. Stoner will resume care this patient starting tomorrow.
[2017-09-11] MEDS: lamoTRIgine 25 MG TAB PO SCH (21:00)
[2017-09-12 07:10] VITALS: BP 113/75; PULSE 97; TEMP 98.4
[2017-09-12] MEDS: VENLAFAXINE HCL ER 75 MG CAP PO SCH (08:57)
[2017-09-12] MEDS: NALTREXONE HCL 50 MG TAB PO SCH (08:57)
[2017-09-12] MEDS: AMOXICILLIN 250 MG CAP PO SCH (08:57)
[2017-09-12] MEDS: IBUPROFEN 400 MG TAB PO PRN (08:58)
[2017-09-12] MEDS: NEOMYCIN-BACITRACIN-POLY OINT 14 GM TUBE TOPICAL SCH (08:58)
[2017-09-12] MEDS: LORazepam 1 MG TAB PO PRN (08:58)
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
[2017-09-12] MEDS: NICOTINE 21MG/24HR PATCH TRANSDERM SCH (09:46)
== END 2017-09-12 12:05 | disposition home or self-care (01) | DRG 885 ==
LOC: EC 14:53 → 3MHU 21:13
PROVIDERS: ADMIT Psychiatry & Neurology Psychiatry; ATTEND Psychiatry & Neurology Psychiatry
DX: F33.2 Major depressive disorder, recurrent severe without psychotic features (principal); R45.851 Suicidal ideations; F11.20 Opioid dependence, uncomplicated; S51.812A Laceration without foreign body of left forearm, initial encounter; K04.7 Periapical abscess without sinus; B19.20 Unspecified viral hepatitis C without hepatic coma; F12.90 Cannabis use, unspecified, uncomplicated; F17.200 Nicotine dependence, unspecified, uncomplicated; F41.1 Generalized anxiety disorder; F43.10 Post-traumatic stress disorder, unspecified; J45.909 Unspecified asthma, uncomplicated; Z91.5 Personal history of self-harm; Z91.410 Personal history of adult physical and sexual abuse; Z81.8 Family history of other mental and behavioral disorders; Z56.0 Unemployment, unspecified; X78.1XXA Intentional self-harm by knife, initial encounter
CPT/HCPCS: 12004; 36415; 70160; 80048; 80061; 80306; 80320; 81025; 82075; 83036; 83520; 84443; 85025; 90471; 90715; 99285

== ENCOUNTER 2018-05-16 11:18 | Inpatient (IN) | payer MEDICAID, OTHER ==
--- NOTE | 2018-05-16 12:22 | ED ---
Psych HPI - General Chief Complaint: Psychiatric Symptoms Stated Complaint: Suicidal Time Seen by Provider: 05/16/18 11:34 Source: patient, RN notes reviewed, old records reviewed Mode of arrival: ambulatory - History of Present Illness Initial Comments: Patient is a 27-year-old female presents with some suicidal ideations and depression. She states that she is in the past but [place] today. She did call mobile crisis unit who told her to come here. Patient reports that she is admitted with depression for quite some time. She recently relapsed on heroin. She is currently homeless. Patient states that she last used heroin last night. She denies any physical complaints at this time. - Related Data Home Medications Medication Instructions Recorded Confirmed No Known Home Medications [No 05/16/18 05/16/18 Known Home Medications] Allergies Allergy/AdvReac Type Severity Reaction Status Date / Time shellfish derived [Shellfish] AdvReac Nausea & Verified 05/16/18 11:54 Vomiting Review of Systems ROS Statement: Those systems with pertinent positive or pertinent negative responses have been documented in the HPI. ROS Other: All systems not noted in ROS Statement are negative. Past Medical History Past Medical History: Asthma Additional Past Medical History / Comment(s): childhood asthma History of Any Multi-Drug Resistant Organisms: None Reported Past Surgical History: Section, Tubal Ligation Additional Past Surgical History / Comment(s): x2 Past Anesthesia/Blood Transfusion Reactions: Previous Problems w/ Anesthesia Additional Past Anesthesia/Blood Transfusion Reaction / Comment(s): epidural did not work, put under for and quit breathing. Past Psychological History: No Psychological Hx Reported Smoking Status: Current every day smoker Past Alcohol Use History: None Reported Past Drug Use History: Heroin, Marijuana - Past Family History Father Family Medical History: Hypertension, Pneumonia Mother Additional Family Medical History / Comment(s): ETOH, mental issues. General Exam - General Exam Comments Initial Comments: 27-year-old female. Alert and oriented. No significant distress. General: Well appearing, well nourished, in no distress. Oriented x 3, normal mood and affect . Ambulating without difficulty. Skin: Multiple scabbed over abrasions over back arms and chest. Hair: Normal texture and distribution. HEENT: Head: Normocephalic, atraumatic, no visible or palpable masses, depressions, or scaring. Mouth: Mucous membranes moist, no mucosal lesions. Teeth/Gums: No obvious caries or periodontal disease. No gingival inflammation or significant resorption. Pharynx: Mucosa non-inflamed, no tonsillar hypertrophy or exudate Neck: Supple, without lesions, bruits, or adenopathy, thyroid non-enlarged and non-tender Heart: No cardiomegaly or thrills; regular rate and rhythm, no murmur or gallop Lungs: Clear to auscultation and percussion Abdomen: Bowel sounds normal, no tenderness, organomegaly, masses, or hernia Extremities: No amputations or deformities, cyanosis, edema or varicosities, peripheral pulses intact Musculoskeletal: Normal gait and station. No misalignment, asymmetry, crepitation, defects, tenderness, masses, effusions, decreased range of motion, instability, atrophy or abnormal strength or tone in the head, neck, spine, ribs , pelvis or extremities. Neurologic: CN 2-12 normal. Sensation to pain, touch, and proprioception normal. DTRs normal in upper and lower extremities. No pathologic reflexes. Psychiatric: Oriented X3, intact recent and remote memory, is suicidal. Denies any specific plan. Does appear depressed intermittent. Limitations: no limitations General appearance: alert, in no apparent distress Course Vital Signs 05/16/18 11:25 Temperature 97.5 F L Pulse Rate 69 Respiratory 16 Rate Blood Pressure 107/77 O2 Sat by Pulse 100 Oximetry Medical Decision Making - Medical Decision Making 27-year-old female presents with suicidal ideations. She reports she recently relapsed on heroin and is currently homeless. States she thought about cutting herself. Denies any active plan at this time. Patient is given a sandwich, resting comfortable in bed. 12:21 PM. Patient is medically clear for psychiatric evaluation. Currently pending [facility] and EPS arrival. Patient is evaluated EPS. Patient will be admitted. Patient will sign in for treatment of depression suicidal ideation. - Lab Data Lab Results 05/16/18 05/16/18 Range/Units 11:51 11:51 Urine Color Yellow Urine Appearance Turbid H (Clear) Urine pH 6.0 (5.0-8.0) Ur Specific [place] 1.026 (1.001-1.035) Urine Protein 1+ H (Negative) Urine Glucose (UA) Negative (Negative) Urine Ketones 1+ H (Negative) Urine Blood Moderate H (Negative) Urine Nitrite Negative (Negative) Urine Bilirubin Negative (Negative) Urine Urobilinogen 3.0 (<2.0) mg/dL Ur Leukocyte Esterase Large H (Negative) Urine RBC 17 H (0-5) /hpf Urine WBC 50 H (0-5) /hpf Ur Squamous Epith Cells 37 H (0-4) /hpf Amorphous Sediment Few H (None) /hpf Urine Bacteria Rare H (None) /hpf Urine Mucus Many H (None) /hpf Urine HCG, Qual Not Detected (Not Detectd) Urine Opiates Screen Detected H (NotDetected) Ur Oxycodone Screen Not Detected (NotDetected) Urine Methadone Screen Not Detected (NotDetected) Ur Propoxyphene Screen Not Detected (NotDetected) Ur Barbiturates Screen Not Detected (NotDetected) U Tricyclic Antidepress Not Detected (NotDetected) Ur Phencyclidine Scrn Not Detected (NotDetected) Ur Amphetamines Screen Detected H (NotDetected) U Methamphetamines Scrn Detected H (NotDetected) U Benzodiazepines Scrn Not Detected (NotDetected) Urine Cocaine Screen Detected H (NotDetected) U Marijuana (THC) Screen Detected H (NotDetected) Disposition Clinical Impression: Suicidal ideation Disposition: ADMITTED IP TO THIS HOSP Condition: Good Additional Instructions: Patient advised Is patient prescribed a controlled substance at d/c from ED?: No When asked, does pt state using other controlled substances?: No If prescribed controlled substance>3 days was MAPS reviewed?: No If opioid is for acute pain is fill amount 7 days or less?: No If Rx opioid, was Start Talking consent form obtained?: No Referrals: Bhavin Guzman MD [Primary Care Provider] - 1-2 days Time of Disposition: 14:31
[2018-05-16 12:40] LABS: Amorphous Sediment,Urine Few /hpf; Appearance,Urine Turbid (Clear); Bacteria,Urine Rare /hpf; Bilirubin,Urine Negative (Negative); Blood,Urine Moderate (Negative); Color,Urine Yellow; Glucose,Urine (UA) Negative (Negative); Ketones,Urine 1+ (Negative); Leukocyte Esterase,Urine Large (Negative); Mucus,Urine Many /hpf; Nitrite,Urine Negative (Negative); Protein,Urine 1+ (Negative); RBC,Urine 17 /hpf (0-5); Specific Gravity,Urine 1.026 (1.001-1.035); Squamous Epithelial Cell,Urine 37 /hpf (0-4); WBC,Urine 50 /hpf (0-5)
[2018-05-16 12:43] LABS: Cocaine Screen,Urine Detected (NotDetected); Opiate Screen,Urine Detected (NotDetected); Phencyclidine Screen,Urine Not Detected (NotDetected); Urn Cannabinoid Scrn Detected (NotDetected)
[2018-05-16 12:44] LABS: Amphetamine Screen,Urine Detected (NotDetected); Barbiturate Screen,Urine Not Detected (NotDetected); Benzodiazepines Screen,Urine Not Detected (NotDetected); Methadone Screen, Urine Not Detected (NotDetected); Oxycodone Screen, Urine Not Detected (NotDetected); Tricyclic Antidepressant,Urine Not Detected (NotDetected)
[2018-05-16] MEDS ORDERED: ZIPRASIDONE 20 MG VIAL IM PRN (14:54)
[2018-05-16] MEDS ORDERED: MAGNESIUM HYDROXIDE 2,400 MG/10 ML CUP PO PRN (14:54)
[2018-05-16] MEDS ORDERED: ONDANSETRON 4 MG TAB PO PRN (15:59)
--- NOTE | 2018-05-16 16:05 | P.HP ---
Psychiatric H&P - . H&P Date: 05/16/18 History & Physical: IDENTIFYING DATA: The patient is 27-year-old single female who presented to unit voluntarily with complaints of depression and suicidal ideation. HISTORY OF PRESENT ILLNESS: She is known to this service from prior psychiatric admissions. She was last discharged in August 2017 with the diagnoses of major depressive disorder recurrent without psychotic features, opiate use disorder, generalized anxiety disorder and a posttraumatic stress disorder. Her psychotropic medications included Lamictal 25 mg at bedtime, naltrexone 50 mg daily and Effexor XL 75 mg daily. She stated that she relapsed to methamphetamine, cocaine and heroin "about 2 weeks" prior to admission. She denied the use of alcohol. She attributes the relapsed to being with friends who are using drugs. She was injecting the drugs and last injected the day prior to admission. Her urine drug screen was positive for opiates, amphetamines, methamphetamines, cocaine and marijuana. She is complaining of withdrawal symptoms included dysphoria, nausea, muscle aches and insomnia. She complains of feeling depressed, hopeless, helpless and worthless. "I don't feel like living anymore. ... I'm a failure. Everything I try doesn't work out." She described ideas of guilt and rumination over past errors iand misdeeds. She feels that her present illness is a punishment but did not express clear delusions of guilt. She does not hear accusatory or denunciatory voices or experiences threatening visual hallucinations. She feels that life is not worth living and wishes she were but did not express suicidal ideas and denied planning or making a suicide attempt prior to admission. She described early, middle and late insomnia. She has difficulty with concentration, motivation and energy. She described subjective tension and anxiety. She she feels heaviness in her arms and legs and has recently lost weight. She denied periods of increased anxiety comes with panic attacks. She denied experiencing obsessions or compulsions. She denied such psychotic symptoms as auditory, visual or olfactory hallucinations, ideas reference, thought insertion , thought broadcasting or thought control. PAST PSYCHIATRIC HISTORY: This is her seventh admission to this psychiatric unit since March 2013. In addition to the diagnoses of opiate, amphetamine and cocaine use disorder she has a fairly consistent diagnosis of major depressive disorder. She has a history of self cutting and alleged she last cut her forearm "couple weeks ago". PAST MEDICAL HISTORY: She has hepatitis C, history of carpal tunnel syndrome and scoliosis.. ALLERGIES: NO KNOWN DRUG ALLERGIES. SUBSTANCE USE HISTORY: She has a history of alcohol, heroin, cocaine and methamphetamine use beginning in adolescence. She is attended several substance abuse treatment programs including [facility]. She is not been in a methadone substitution program or received Suboxone from a certified provider. FAMILY PSYCHIATRIC/SUBSTANCE USE HISTORY: According to the medical record there is an extensive history of mental illness and drug use on her mother this service her aunt and 3 other family members have by suicide. LEGAL HISTORY: According the [facility] court docket she had charges of domestic violence, possession of narcotics and an OUI. She denied that she is on probation, parole or has pending charges. SOCIAL HISTORY: She is unemployed and has no income or stable housing. 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 She has 3 children who are in custody of their father. Her father's . She is estranged from her mother. MENTAL STATUS EXAM: She presented as a disheveled appearing 27-year-old female who looks older than her stated age. She has excoriations on her face and neck. She did not make eye contact and stared at the floor during the interview. She had no prominent physical abnormalities. She had a distressed and depressed facial expression. She was tremulous and restless. Her speech was not spontaneous and had decreased rate, rhythm and volume. Her affect was depressed and anxious. She describes suicidal thoughts and wishes but denied homicidal ideation. She express such depressive cognitions as hopelessness, helplessness and worthlessness. She ruminated about her personal failures but did not express ideas reference, paranoid ideation or delusions. Her thinking was concrete. Associations were coherent and logical. She denied hallucinations and did not appear to be responding to internal stimuli. Global impression of intellect is average. She is aware of her mental health and substance use problems. STRENGTHS: Treatment seeking, relatively good health. WEAKNESSES: Lack of income, lack of stable housing, relapse to drug use. Allergies Allergy/AdvReac Type Severity Reaction Status Date / Time shellfish derived [Shellfish] AdvReac Nausea & Verified 05/16/18 14:57 Vomiting Vital Signs Temp 97.5 F L 05/16/18 11:25 Pulse 69 05/16/18 11:25 Resp 16 05/16/18 11:25 BP 107/77 05/16/18 11:25 Pulse Ox 100 05/16/18 11:25 Intake & Output 05/15/18 05/16/18 05/16/18 18:59 06:59 18:59 Weight 58.967 kg Laboratory Last Values Urine Color Yellow 05/16/18 11:51 Urine Appearance Turbid (Clear) H 05/16/18 11:51 Urine pH 6.0 (5.0-8.0) 05/16/18 11:51 Ur Specific [place] 1.026 (1.001-1.035) 05/16/18 11:51 Urine Protein 1+ (Negative) H 05/16/18 11:51 Urine Glucose (UA) Negative (Negative) 05/16/18 11:51 Urine Ketones 1+ (Negative) H 05/16/18 11:51 Urine Blood Moderate (Negative) H 05/16/18 11:51 Urine Nitrite Negative (Negative) 05/16/18 11:51 Urine Bilirubin Negative (Negative) 05/16/18 11:51 Urine Urobilinogen 3.0 mg/dL (<2.0) 05/16/18 11:51 Ur Leukocyte Esterase Large (Negative) H 05/16/18 11:51 Urine RBC 17 /hpf (0-5) H 05/16/18 11:51 Urine WBC 50 /hpf (0-5) H 05/16/18 11:51 Ur Squamous Epith Cells 37 /hpf (0-4) H 05/16/18 11:51 Amorphous Sediment Few /hpf (None) H 05/16/18 11:51 Urine Bacteria Rare /hpf (None) H 05/16/18 11:51 Urine Mucus Many /hpf (None) H 05/16/18 11:51 Urine HCG, Qual Not Detected (Not Detectd) 05/16/18 11:51 Urine Opiates Screen Detected (NotDetected) H 05/16/18 11:51 Ur Oxycodone Screen Not Detected (NotDetected) 05/16/18 11:51 Urine Methadone Screen Not Detected (NotDetected) 05/16/18 11:51 Ur Propoxyphene Screen Not Detected (NotDetected) 05/16/18 11:51 Ur Barbiturates Screen Not Detected (NotDetected) 05/16/18 11:51 U Tricyclic Antidepress Not Detected (NotDetected) 05/16/18 11:51 Ur Phencyclidine Scrn Not Detected (NotDetected) 05/16/18 11:51 Ur Amphetamines Screen Detected (NotDetected) H 05/16/18 11:51 U Methamphetamines Scrn Detected (NotDetected) H 05/16/18 11:51 U Benzodiazepines Scrn Not Detected (NotDetected) 05/16/18 11:51 Urine Cocaine Screen Detected (NotDetected) H 05/16/18 11:51 U Marijuana (THC) Screen Detected (NotDetected) H 05/16/18 11:51 05/16/18 15:34 05/16/18 16:01 Assessment and Plan Assessment: She is a 27-year-old single female who has history of a mood disorder and substance abuse disorders. She presented to the unit with complaints of depression, hopelessness, helplessness and suicidal ideation. She lost her job about 2 weeks ago and relapsed to using heroin, cocaine and methamphetamine. Since she relapsed she experienced increasing depression and hopelessness. She has signs and symptoms of opiate and amphetamine/methamphetamine withdrawal. She should be treated inpatient basis with combination of psychopharmacology and multimodal therapy. Prescribe symptomatic treatment for the opiate withdrawal symptoms. (1) Methamphetamine use disorder, severe Current Visit: Yes Status: Chronic Priority: High Code(s): F15.20 - OTHER STIMULANT DEPENDENCE, UNCOMPLICATED SNOMED Code(s): 921716087 (2) Opiate withdrawal Current Visit: Yes Status: Acute Priority: Medium Code(s): F11.23 - OPIOID DEPENDENCE WITH WITHDRAWAL SNOMED Code(s): 06672395 (3) Suicidal ideation Current Visit: Yes Status: Acute Priority: Medium Code(s): R45.851 - SUICIDAL IDEATIONS SNOMED Code(s): 9500548 (4) Major depressive disorder, recurrent severe without psychotic features Current Visit: No Status: Acute Priority: High Code(s): F33.2 - MAJOR DEPRESSV DISORDER, RECURRENT SEVERE W/O PSYCH FEATURES SNOMED Code(s): 82321443 (5) Opioid use disorder, severe, dependence Current Visit: No Status: Chronic Priority: High Code(s): F11.20 - OPIOID DEPENDENCE, UNCOMPLICATED SNOMED Code(s): 68068267 (6) Cocaine use disorder, moderate, dependence Current Visit: No Status: Chronic Priority: Medium Code(s): F14.20 - COCAINE DEPENDENCE, UNCOMPLICATED SNOMED Code(s): 59632149 Plan: Continue inpatient psychiatric hospitalization. Monitor for safety. Consult medicine for this initial physical exam and medical history. mold yard worker to complete initial psychosocial assessment. Clonidine 0.2 mg by mouth 4 times a day for opiate withdrawal. Lomotil one tablet by mouth every 6 hours when necessary for diarrhea, Zofran 4 mg by mouth every 8 hours when necessary for nausea and vomiting and lorazepam 1 mg by mouth 3 times a day when necessary for anxiety/agitation. Restart Effexor XR once the acute withdrawal symptoms veronica. Discuss referral to a substance abuse treatment program after discharge. Encourage participation in therapeutic groups and activities as tolerated. Evaluate clinical status response to treatment daily basis.
[2018-05-16] MEDS: NICOTINE 21MG/24HR PATCH TRANSDERM SCH (16:12)
[2018-05-16] MEDS: cloNIDine HCL 0.2 MG TAB PO SCH ×2 (17:33→23:54)
[2018-05-17] MEDS: LORazepam 1 MG TAB PO PRN ×2 (07:17→17:33)
[2018-05-17] MEDS: ACETAMINOPHEN TAB 325 MG TAB PO PRN ×2 (07:17→17:33)
[2018-05-17] MEDS: NICOTINE 21MG/24HR PATCH TRANSDERM SCH (09:31)
[2018-05-17] MEDS: cloNIDine HCL 0.2 MG TAB PO SCH ×4 (09:31→21:14)
[2018-05-17 10:25] LABS: Anisocytosis Slight; HCT 29.9 % (34.0-46.0); HGB 9.5 gm/dL (11.4-16.0); Hypochromasia Marked; MCH 24.8 pg (25.0-35.0); MCHC 31.7 g/dL (31.0-37.0); MCV 78.3 fL (80.0-100.0); Mean Platelet Volume 7.9; Microcytosis Slight; Platelet Count 222 k/uL (150-450); RBC 3.82 m/uL (3.80-5.40); RDW 16.6 % (11.5-15.5); WBC 4.7 k/uL (3.8-10.6)
[2018-05-17 10:40] LABS: ALT 44 U/L (9-52); AST 53 U/L (14-36); Albumin 3.2 g/dL (3.5-5.0); Alkaline Phosphatase 87 U/L (38-126); Anion Gap 11 mmol/L; Blood Urea Nitrogen 13 mg/dL (7-17); Calcium 8.5 mg/dL (8.4-10.2); Carbon Dioxide 23 mmol/L (22-30); Chloride 106 mmol/L (98-107); Cholesterol 82 mg/dL (<200); Glucose 76 mg/dL (74-99); HDL Cholesterol 16 mg/dL (40-60); LDL Cholesterol,Calculated 42 mg/dL (0-99); Potassium 3.7 mmol/L (3.5-5.1); Sodium 140 mmol/L (137-145); Total Bilirubin 0.3 mg/dL (0.2-1.3); Triglycerides 121 mg/dL (<150)
[2018-05-17 12:13] LABS: Lymphocytes # (M) 1.97 k/uL (1.0-4.8); Monocytes # (M) 0.28 k/uL (0-1.0); Neutrophils # (M) 2.44 k/uL (1.3-7.7); Neutrophils % (M) 52 %; Nucleated Red Blood Cells 0 /100 WBC (0-0); Total Cells Counted 100
[2018-05-17 12:14] LABS: Ovalocytes Present
[2018-05-17 12:15] LABS: Poikilocytosis (M) Present; RBC Fragments Present
--- NOTE | 2018-05-17 12:43 | P.PN ---
Subjective Progress Note Date: 05/17/18 Principal diagnosis: Suicidal ideation, major depressive disorder recurrent severe without psychotic features, opiate use disorder severe, methamphetamine use disorder severe, cocaine use disorder moderate, opiate withdrawal, methamphetamine withdrawal I reviewed the medical record, interviewed the patient and discussed her treatment and treatment plan during team meeting. She complained of fatigue, sweating, nausea, joint pain and restless. She denied nausea, vomiting or dealer diarrhea. She denied current thoughts of or suicide. She denied feeling paranoid or experiencing auditory, visual or olfactory hallucinations. She slept 5 hours last night. She does not attend therapeutic groups or activities. She received one dose of clonidine 0.2 mg yesterday and Ativan 1 mg. She did not require Lomotil or Zofran for diarrhea or nausea. Objective - Vital Signs Vital signs: Vital Signs Temp 99.7 F H 05/17/18 07:16 Pulse 87 05/17/18 06:37 Resp 16 05/17/18 06:37 BP 119/70 05/17/18 06:37 Pulse Ox 100 05/16/18 11:25 Intake & Output 05/16/18 05/17/18 05/17/18 18:59 06:59 18:59 Weight 59.2 kg - Psychiatric Psychiatric Comment(s): She presented as a disheveled and restless young female who had difficulty concentrating and attending to the interview. She had a distressed facial expression. She was agitated and restless but showed no abnormal movements. Her speech was not spontaneous and had decreased rate, rhythm and volume. She was irritable but not labile or and appropriate. She denied suicidal ideation, wishes or homicidal ideation. She suspects feelings of hopelessness and helplessness. She did not express ideas reference, paranoid ideation or delusional thoughts. Her thinking was concrete but her associations were coherent and logical. She did not appear to be responding to internal stimuli. Her temperature was slightly elevated and 9.7. Pulse was 87. - Labs CBC & Chem 7: 05/17/18 09:26 05/17/18 09:26 Labs: Abnormal Lab Results - Last 24 Hours (Table) 05/16/18 Range/Units 11:51 Urine Appearance Turbid H (Clear) Urine Protein 1+ H (Negative) Urine Ketones 1+ H (Negative) Urine Blood Moderate H (Negative) Ur Leukocyte Esterase Large H (Negative) Urine RBC 17 H (0-5) /hpf Urine WBC 50 H (0-5) /hpf Ur Squamous Epith Cells 37 H (0-4) /hpf Amorphous Sediment Few H (None) /hpf Urine Bacteria Rare H (None) /hpf Urine Mucus Many H (None) /hpf Urine Opiates Screen Detected H (NotDetected) Ur Amphetamines Screen Detected H (NotDetected) U Methamphetamines Scrn Detected H (NotDetected) Urine Cocaine Screen Detected H (NotDetected) U Marijuana (THC) Screen Detected H (NotDetected) Assessment and Plan Assessment: She has signs and symptoms of acute opiate withdrawal partial relief by clonidine. Urine drug screen is suggestive of a urinary tract infection. (1) Methamphetamine use disorder, severe Current Visit: Yes Status: Chronic Priority: High Code(s): F15.20 - OTHER STIMULANT DEPENDENCE, UNCOMPLICATED SNOMED Code(s): 973347565 (2) Opiate withdrawal Current Visit: Yes Status: Acute Priority: Medium Code(s): F11.23 - OPIOID DEPENDENCE WITH WITHDRAWAL SNOMED Code(s): 03281003 (3) Suicidal ideation Current Visit: Yes Status: Acute Priority: Medium Code(s): R45.851 - SUICIDAL IDEATIONS SNOMED Code(s): 5037212 (4) Major depressive disorder, recurrent severe without psychotic features Current Visit: No Status: Acute Priority: High Code(s): F33.2 - MAJOR DEPRESSV DISORDER, RECURRENT SEVERE W/O PSYCH FEATURES SNOMED Code(s): 01898919 (5) Opioid use disorder, severe, dependence Current Visit: No Status: Chronic Priority: High Code(s): F11.20 - OPIOID DEPENDENCE, UNCOMPLICATED SNOMED Code(s): 41632299 (6) Cocaine use disorder, moderate, dependence Current Visit: No Status: Chronic Priority: Medium Code(s): F14.20 - COCAINE DEPENDENCE, UNCOMPLICATED SNOMED Code(s): 91986003 Plan: Continue inpatient psychiatric hospitalization. Monitor for safety. Continue clonidine 0.2 mg by mouth 4 times a day for opiate withdrawal, Lomotil one tablet by mouth every 6 hours when necessary for diarrhea, Zofran 4 mg by mouth every 8 hours when necessary for nausea and vomiting and lorazepam 1 mg by mouth 3 times a day when necessary for anxiety/agitation. Awaiting medicine consult. Discuss referral to a substance abuse treatment program after discharge. Encourage participation in therapeutic groups and activities as tolerated. Evaluate clinical status response to treatment daily basis.
--- NOTE | 2018-05-17 16:21 | CONS ---
CONSULTATION CHIEF COMPLAINT: Major depression with suicide intent. HISTORY OF PRESENT ILLNESS: This is another admission for this 27-year-old white female with major depression. She came into the emergency room where she drug tested positive for numerous substances including cocaine and indicated that she was depressed and wanted to kill herself. REVIEW OF SYSTEMS: She denies any focal neurologic problems, headaches, chest pain, shortness of breath, heart disease, murmurs, abdominal pain, nausea, vomiting, hematemesis, melena, hematochezia, jaundice, hematuria, frequency, urgency, renal failure, arthritis, diabetes, etc. PAST MEDICAL HISTORY: Past medical history, family history personal and social histories reveal that she does smoke. PHYSICAL EXAM: Blood pressure is 114/66 with a pulse of 70 and regular, respirations 16 and temperature 98.5. In general, she appeared to be a well developed, well nourished, in no acute distress. Skin color is normal. Skin is warm, dry. Lymph nodes not enlarged. Head, ears, eyes, nose, mouth, and throat were normal. Neck veins not distended. Thyroid not enlarged. Chest is clear. Cardiac exam is normal. Abdomen is soft, nontender. EXTREMITIES: Normal. NEUROLOGICAL: She is intact, but somewhat lethargic. IMPRESSION: 1. Major depression. 2. Suicide attempt. 3. Polysubstance abuse. RECOMMENDATIONS: None at this time. MMODL / IJN: [id number] /
[2018-05-17 21:38] LABS: Hemoglobin A1C 5.7 % (4.0-6.0)
[2018-05-18] MEDS: cloNIDine HCL 0.2 MG TAB PO SCH ×3 (08:18→20:51)
[2018-05-18] MEDS: NICOTINE 21MG/24HR PATCH TRANSDERM SCH (09:05)
[2018-05-18] MEDS: DIPHENOX-ATROP 2.5-0.025 MG 1 EACH TAB PO PRN ×2 (10:48→15:41)
[2018-05-18] MEDS: FLUoxetine HCL 20 MG CAP PO SCH (10:48)
--- NOTE | 2018-05-18 14:22 | P.PN ---
Subjective Progress Note Date: 05/18/18 Principal diagnosis: Suicidal ideation, major depressive disorder recurrent severe without psychotic features, opiate use disorder severe, methamphetamine use disorder severe, cocaine use disorder moderate, opiate withdrawal, methamphetamine withdrawal I reviewed the medical record, interviewed the patient and discussed her treatment and treatment plan during team meeting. She stated that she is feeling better but continues to experience some symptoms of withdrawal. She feels "sweaty" and nauseous. She continues to express feelings of sadness, hopelessness, helplessness and worthlessness. She described thoughts of suicide without plan or intent. She talked about how she has "lost everything" ; she is homeless, has no income and lost her family support. We discussed treatment options and she agreed to a trial of fluoxetine 20 mg daily for the treatment of depressive symptoms. She requested a prescription for Seroquel 100 mg at nighttime for sleep. We also agreed to begin to taper off clonidine. She is interested in reentering a residential substance abuse treatment program. She slept 7 hours last night. She did not attend therapeutic groups or activities yesterday. She did not require Lomotil or Zofran for diarrhea or nausea. Objective - Vital Signs Vital signs: Vital Signs Temp 98.9 F 05/18/18 06:32 Pulse 80 05/18/18 10:45 Resp 18 05/18/18 10:45 BP 98/55 05/18/18 10:45 Pulse Ox 100 05/16/18 11:25 - Psychiatric Psychiatric Comment(s): She presented as a thin and casually groomed young woman who was depressed and tearful. She made eye contact and attended to the interview. She was not tremulous, diaphoretic or agitated. She had a depressed facial expression. She showed psychomotor retardation but no abnormal movements. Speech was spontaneous with normal rate, rhythm and volume. Her affect was depressed and not reactive. She expressed suicidal ideation and wishes but denied intent or plan. She denied homicidal ideation. She expressed depressive cognitions including hopelessness, helplessness or worthlessness. She did not express ideas reference, paranoid ideation or delusions. Her thinking was abstract and associations were coherent and logical. She denied hallucinations and did not appear to be responding to internal stimuli. - Labs CBC & Chem 7: 05/17/18 09:26 05/17/18 09:26 Assessment and Plan Assessment: She has minimal signs for acute opiate withdrawal. She has symptoms of depression including hopelessness and suicidal ideation. (1) Methamphetamine use disorder, severe Current Visit: Yes Status: Chronic Priority: High Code(s): F15.20 - OTHER STIMULANT DEPENDENCE, UNCOMPLICATED SNOMED Code(s): 056439752 (2) Opiate withdrawal Current Visit: Yes Status: Acute Priority: Medium Code(s): F11.23 - OPIOID DEPENDENCE WITH WITHDRAWAL SNOMED Code(s): 99882085 (3) Suicidal ideation Current Visit: Yes Status: Acute Priority: Medium Code(s): R45.851 - SUICIDAL IDEATIONS SNOMED Code(s): 9359032 (4) Major depressive disorder, recurrent severe without psychotic features Current Visit: No Status: Acute Priority: High Code(s): F33.2 - MAJOR DEPRESSV DISORDER, RECURRENT SEVERE W/O PSYCH FEATURES SNOMED Code(s): 46666125 (5) Opioid use disorder, severe, dependence Current Visit: No Status: Chronic Priority: High Code(s): F11.20 - OPIOID DEPENDENCE, UNCOMPLICATED SNOMED Code(s): 76797591 (6) Cocaine use disorder, moderate, dependence Current Visit: No Status: Chronic Priority: Medium Code(s): F14.20 - COCAINE DEPENDENCE, UNCOMPLICATED SNOMED Code(s): 75649215 Plan: Continue inpatient psychiatric hospitalization. Monitor for safety. Decrease clonidine 0.2 mg by mouth 3 times a day for opiate withdrawal. Continue Lomotil one tablet by mouth every 6 hours when necessary for diarrhea, Zofran 4 mg by mouth every 8 hours when necessary for nausea and vomiting and lorazepam 1 mg by mouth 3 times a day when necessary for anxiety/agitation. Begin fluoxetine 20 mg daily and Seroquel 100 mg at bedtime. mold loft worker to assist with referral for substance abuse treatment. Encourage participation in therapeutic groups and activities as tolerated. Evaluate clinical status response to treatment daily basis.
[2018-05-18] MEDS: QUEtiapine 100 MG TAB PO SCH (20:51)
[2018-05-18] MEDS: LORazepam 1 MG TAB PO PRN (20:55)
[2018-05-19] MEDS: LORazepam 1 MG TAB PO PRN ×2 (09:18→17:04)
[2018-05-19] MEDS: cloNIDine HCL 0.2 MG TAB PO SCH ×2 (09:18→20:29)
[2018-05-19] MEDS: NICOTINE 21MG/24HR PATCH TRANSDERM SCH (09:18)
[2018-05-19] MEDS: FLUoxetine HCL 20 MG CAP PO SCH (09:18)
[2018-05-19] MEDS: ACETAMINOPHEN TAB 325 MG TAB PO PRN (15:22)
--- NOTE | 2018-05-19 16:33 | P.PN ---
Subjective Progress Note Date: 05/19/18 Principal diagnosis: Suicidal ideation, major depressive disorder recurrent severe without psychotic features, opiate use disorder severe, methamphetamine use disorder severe, cocaine use disorder moderate, opiate withdrawal, methamphetamine withdrawal I reviewed the medical record, interviewed the patient and discussed her treatment and treatment plan during team meeting. She continues to experience some symptoms of alcohol including nausea, poor appetite, anxiety and general dysphoria. I declined her requests for gabapentin and increased dose of Ativan. She denied symptoms suggestive of hypotension or orthostatic hypotension. She called [facility] regarding screening for substance abuse treatment. She was accepted at [facility] on 05/22/2018 11 AM. She requests to be discharged on Tuesday "as soon as possible" so that she can keep the admission appointment. She slept 7 hours last night. She attended 2 therapeutic groups or activities yesterday. She did not require Lomotil or Zofran for diarrhea or nausea. Objective - Vital Signs Vital signs: Vital Signs Temp 98.3 F 05/19/18 06:34 Pulse 73 05/19/18 06:34 Resp 20 05/19/18 06:34 BP 109/66 05/19/18 06:34 Pulse Ox 100 05/16/18 11:25 - Psychiatric Psychiatric Comment(s): She presented as a thin and casually groomed young woman who pleasant on approach. She made eye contact and attended to the interview. She was not tremulous, diaphoretic or agitated. She had a blunted but bright facial expression. She showed psychomotor retardation but no abnormal movements. Speech was spontaneous with normal rate, rhythm and volume. Her affect was blunted but bright. She did not appear depressed or anxious. She denied suicidal ideation and wishes. She denied homicidal ideation. She denied such depressive cognitions as hopelessness, helplessness or worthlessness. She did not express ideas reference, paranoid ideation or delusions. Her thinking was abstract and associations were coherent and logical. She denied hallucinations and did not appear to be responding to internal stimuli. - Labs CBC & Chem 7: 05/17/18 09:26 05/17/18 09:26 Assessment and Plan Assessment: She has minimal signs for acute opiate withdrawal. She does not appear depressed or anxious. She is denying current suicidal thoughts and wishes. (1) Methamphetamine use disorder, severe Current Visit: Yes Status: Chronic Priority: High Code(s): F15.20 - OTHER STIMULANT DEPENDENCE, UNCOMPLICATED SNOMED Code(s): 812039942 (2) Opiate withdrawal Current Visit: Yes Status: Acute Priority: Low Code(s): F11.23 - OPIOID DEPENDENCE WITH WITHDRAWAL SNOMED Code(s): 52676145 (3) Suicidal ideation Current Visit: Yes Status: Resolved Priority: Medium Code(s): R45.851 - SUICIDAL IDEATIONS SNOMED Code(s): 7227058 (4) Major depressive disorder, recurrent severe without psychotic features Current Visit: No Status: Acute Priority: Medium Code(s): F33.2 - MAJOR DEPRESSV DISORDER, RECURRENT SEVERE W/O PSYCH FEATURES SNOMED Code(s): 91206358 (5) Opioid use disorder, severe, dependence Current Visit: No Status: Chronic Priority: High Code(s): F11.20 - OPIOID DEPENDENCE, UNCOMPLICATED SNOMED Code(s): 78421761 (6) Cocaine use disorder, moderate, dependence Current Visit: No Status: Chronic Priority: Medium Code(s): F14.20 - COCAINE DEPENDENCE, UNCOMPLICATED SNOMED Code(s): 37237809 Plan: Continue inpatient psychiatric hospitalization. Monitor for safety. Decrease clonidine 0.2 mg twice a day. Continue Lomotil one tablet by mouth every 6 hours when necessary for diarrhea, Zofran 4 mg by mouth every 8 hours when necessary for nausea and vomiting and lorazepam 1 mg by mouth 3 times a day when necessary for anxiety/agitation. Continue fluoxetine 20 mg daily and Seroquel 100 mg at bedtime. Discharge 05/22/2018 for residential substance abuse treatment. Encourage participation in therapeutic groups and activities as tolerated. Evaluate clinical status response to treatment daily basis.
[2018-05-19] MEDS: QUEtiapine 100 MG TAB PO SCH (20:29)
[2018-05-20 06:07] VITALS: RESP 16
[2018-05-20] MEDS: FLUoxetine HCL 20 MG CAP PO SCH (08:30)
[2018-05-20] MEDS: LORazepam 1 MG TAB PO PRN ×2 (08:30→16:43)
[2018-05-20] MEDS: NICOTINE 21MG/24HR PATCH TRANSDERM SCH (08:30)
[2018-05-20] MEDS: cloNIDine HCL 0.2 MG TAB PO SCH ×2 (08:32→20:10)
--- NOTE | 2018-05-20 11:03 | P.PN ---
Subjective Progress Note Date: 05/20/18 Principal diagnosis: Suicidal ideation, major depressive disorder recurrent severe without psychotic features, opiate use disorder severe, methamphetamine use disorder severe, cocaine use disorder moderate, opiate withdrawal, methamphetamine withdrawal I reviewed the medical record and interviewed the patient. She was laying in bed but got up with the interview. She complained of abdominal distress and nausea. She let she had one bout of diarrhea after breakfast. Overall, she reported that her withdrawal symptoms have improved. She slept 6 hours last night and attended to therapeutic groups and activities yesterday. Objective - Vital Signs Vital signs: Vital Signs Temp 99.1 F 05/20/18 05:47 Pulse 76 05/20/18 05:47 Resp 16 05/20/18 05:47 BP 126/80 05/20/18 05:47 Pulse Ox 100 05/16/18 11:25 - Psychiatric Psychiatric Comment(s): She presented as a casually groomed young female who appeared mildly sedated. She made eye contact and attended to the interview. She had a blunted facial expression. She showed slight psychomotor retardation. Her speech was spontaneous with decreased rhythm and volume. His affect was depressed but reactive. She denied suicidal ideation, wishes or homicidal ideation. She denied feeling hopeless or helpless. Her thinking was abstract and associations were coherent. She denied hallucinations and did not appear to be responding to internal stimuli. - Labs CBC & Chem 7: 05/17/18 09:26 05/17/18 09:26 Assessment and Plan Assessment: She has mild opiate withdrawal symptoms. Overall, she appears moderately mentally ill but much improved from admission.. (1) Suicidal ideation Current Visit: Yes Status: Resolved Priority: Medium Code(s): R45.851 - SUICIDAL IDEATIONS SNOMED Code(s): 4925545 (2) Opiate withdrawal Current Visit: Yes Status: Acute Priority: Low Code(s): F11.23 - OPIOID DEPENDENCE WITH WITHDRAWAL SNOMED Code(s): 85664424 (3) Opioid use disorder, severe, dependence Current Visit: No Status: Chronic Priority: High Code(s): F11.20 - OPIOID DEPENDENCE, UNCOMPLICATED SNOMED Code(s): 51894154 (4) Methamphetamine use disorder, severe Current Visit: Yes Status: Chronic Priority: High Code(s): F15.20 - OTHER STIMULANT DEPENDENCE, UNCOMPLICATED SNOMED Code(s): 614105883 (5) Major depressive disorder, recurrent severe without psychotic features Current Visit: No Status: Acute Priority: Medium Code(s): F33.2 - MAJOR DEPRESSV DISORDER, RECURRENT SEVERE W/O PSYCH FEATURES SNOMED Code(s): 74862305 (6) Cocaine use disorder, moderate, dependence Current Visit: No Status: Chronic Priority: Medium Code(s): F14.20 - COCAINE DEPENDENCE, UNCOMPLICATED SNOMED Code(s): 84882608 Plan: Continue inpatient psychiatric hospitalization. Monitor for safety. Decrease clonidine 0.2 mg daily beginning on 05/21/2018. Continue Lomotil one tablet by mouth every 6 hours when necessary for diarrhea, Zofran 4 mg by mouth every 8 hours when necessary for nausea and vomiting and lorazepam 1 mg by mouth 3 times a day when necessary for anxiety/agitation. Continue fluoxetine 20 mg daily and Seroquel 100 mg at bedtime. Discharge 05/22/2018 for residential substance abuse treatment. Encourage participation in therapeutic groups and activities as tolerated. Evaluate clinical status response to treatment daily basis.
[2018-05-20] MEDS: ACETAMINOPHEN TAB 325 MG TAB PO PRN (13:30)
[2018-05-20] MEDS: QUEtiapine 100 MG TAB PO SCH (20:10)
[2018-05-20] MEDS: MAG HYDROX/AL HYDROX/SIMETH 30 ML CUP PO PRN (20:11)
[2018-05-21] MEDS: NICOTINE 21MG/24HR PATCH TRANSDERM SCH (08:44)
[2018-05-21] MEDS: LORazepam 1 MG TAB PO PRN ×2 (08:44→16:36)
[2018-05-21] MEDS: FLUoxetine HCL 20 MG CAP PO SCH (08:44)
[2018-05-21] MEDS ORDERED: cloNIDine HCL 0.2 MG TAB PO SCH (09:00)
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
[2018-05-21] MEDS: MAG HYDROX/AL HYDROX/SIMETH 30 ML CUP PO PRN (16:37)
[2018-05-21] MEDS: QUEtiapine 100 MG TAB PO SCH (20:05)
[2018-05-22 06:57] VITALS: BP 124/71; PULSE 73; TEMP 98.9
[2018-05-22] MEDS: FLUoxetine HCL 20 MG CAP PO SCH (08:51)
--- NOTE | 2018-05-25 10:25 | P.DS ---
Providers Date of admission: 05/16/18 14:38 Attending physician: Steven Cooper MD Consults: 05/16/18 14:54 Consult Physician Routine Consulting Provider: Bhavin Guzman Consult Reason/Comments: H&P for mental health admission Do you want consulting provider notified?: Yes Primary care physician: Bhavin Guzman - Discharge Diagnosis(es) (1) Suicidal ideation Status: Resolved Priority: Medium (2) Opiate withdrawal Status: Acute Priority: Low (3) Opioid use disorder, severe, dependence Status: Chronic Priority: High (4) Methamphetamine use disorder, severe Status: Chronic Priority: High (5) Major depressive disorder, recurrent severe without psychotic features Status: Acute Priority: Medium (6) Cocaine use disorder, moderate, dependence Status: Chronic Priority: Medium Hospital Course: The patient is a 27-year-old single female who presented to the psychiatric unit voluntarily with complaints of depression and suicidal ideation. She is known to this service from prior psychiatric admissions. She was last discharged in August 2017 with a diagnosis of major depressive disorder, opiate use disorder, generalized anxiety disorder and a posttraumatic stress disorder. She stated that she relapsed to methamphetamine, cocaine and heroin "about 2 weeks" prior to admission. She attributed her relapse to being with friends who are also using drugs. She was injecting drugs and last injected heroin and methamphetamine the day prior to admission. Her urine drug screen was positive for opiates, amphetamines, methamphetamine, cocaine and marijuana. She complained of withdrawal symptoms including dysphoria, nausea, muscle aches and insomnia. In addition she complained of feeling depressed, hopeless, helpless and worthless. She described suicidal ideation with a thought to overdose on drugs. We admitted her to the psychiatric unit under care of this technical writer. We provided a biopsychosocial assessment. The sap portal consultant senior engineering specialist completed the initial physical exam and medical history and diagnosed depression, suicide attempt and polysubstance abuse. The senior engineering specialist had no recommendations following his assessment. We treated the opiate withdrawal symptoms symptomatically with Zofran, Lomotil, clonidine and nonsteroidal anti-inflammatories. The symptoms abated with 0.2 mg of clonidine 3 times a day. As her symptoms resolve, we tapered and discontinued the clonidine. We treated the depressive symptoms and complaints of insomnia with Seroquel 100 mg at bedtime and Prozac 20 mg daily. She initially did not participate in therapeutic groups and activities and spent most of her time in bed. As her withdrawal symptoms resolved she became more socially engaged and participated in some of the therapeutic groups. The forensic social worker assisted and her contacting residential substance abuse treatment program. She was accepted to the residential substance abuse program at [place]. At time of discharge she presented as a casually dressed and casually groomed 27 -year-old female who was pleasant on approach. She made eye contact and attended to interview. She had no distinguishing features or prominent physical abnormalities. She had a bright facial expression. She was alert and oriented to person, place and time. She showed no abnormality of psychomotor activity. Her speech was spontaneous with normal rate, rhythm and volume. Her affect was blunted but stable and appropriate. She denied suicidal ideations, wishes or homicidal ideation. She denied feeling hopeless, helpless or worthless. She did not express phobias, ideas reference, paranoid ideation or delusional thoughts. Her thinking was abstract and associations were coherent and logical. She denied hallucinations and did not appear to be responding to internal stimuli. Patient Condition at Discharge: Good Plan - Discharge Summary Discharge Rx Participant: No New Discharge Prescriptions: New FLUoxetine HCL [PROzac] 20 mg PO DAILY #30 cap Nicotine 21Mg/24Hr Patch [Habitrol] 1 patch TRANSDERM DAILY #7 patch QUEtiapine [SEROquel] 100 mg PO HS #30 tab Discharge Medication List FLUoxetine HCL [PROzac] 20 mg PO DAILY #30 cap 05/21/18 [Rx] Nicotine 21Mg/24Hr Patch [Habitrol] 1 patch TRANSDERM DAILY #7 patch 05/21/18 [ Rx] QUEtiapine [SEROquel] 100 mg PO HS #30 tab 05/21/18 [Rx] Follow up Appointment(s)/Referral(s): intake,intake [Other] - 05/22/18 11:00 am Bhavin Guzman MD [Primary Care Provider] - 1-2 days Patient Instructions/Handouts: Narcotic Abuse (DC), Depression (DC), Methamphetamine Abuse (DC), Suicide Prevention for Older Adults (DC) Activity/Diet/Wound Care/Special Instructions: Activity and diet as tolerated. Avoid the use of street drugs and alcohol. Remove all firearms from the home. Take all medications as prescribed. Follow up with your Primary Care Physician in one to two days. When you are in need of refills on your medications please contact your medical provider and/or your outpatient psychiatrist to have this done. Please go to the scheduled outpatient appointment for aftercare. If symptoms return or become worse call the crisis line and/ or go the nearest emergency room for an evaluation. l Discharge Disposition: HOME SELF-CARE
== END 2018-05-22 08:50 | disposition home or self-care (01) | DRG 885 ==
LOC: EC 11:18 → 3MHU 14:38
PROVIDERS: ADMIT Psychiatry & Neurology Psychiatry; ATTEND Psychiatry & Neurology Psychiatry
DX: F33.2 Major depressive disorder, recurrent severe without psychotic features (principal); F11.23 Opioid dependence with withdrawal; F14.20 Cocaine dependence, uncomplicated; F15.23 Other stimulant dependence with withdrawal; R45.851 Suicidal ideations; F17.200 Nicotine dependence, unspecified, uncomplicated; F41.1 Generalized anxiety disorder; G47.09 Other insomnia; J45.909 Unspecified asthma, uncomplicated; M41.9 Scoliosis, unspecified; B19.20 Unspecified viral hepatitis C without hepatic coma; G56.00 Carpal tunnel syndrome, unspecified upper limb; Z56.0 Unemployment, unspecified; Z59.0 Homelessness; Z63.8 Other specified problems related to primary support group; Z79.899 Other long term (current) drug therapy; Z91.5 Personal history of self-harm; Z91.013 Allergy to seafood; Z98.51 Tubal ligation status; Z82.49 Family history of ischemic heart disease and other diseases of the circulatory system; Z83.6 Family history of other diseases of the respiratory system
CPT/HCPCS: 80053; 80061; 80306; 81001; 81025; 82075; 83036; 84443; 85025; 99285